=== PATIENT | male | born 1980 | race Caucasian/White ===

== ENCOUNTER 2016-07-22 23:00 | Emergency (ER) | payer BC, SELFPAY ==
--- NOTE | 2016-07-26 00:35 | ER ---
ADMIT: 07/22/2016 RM/LOC: ER [facility] MR#: [id number] [address] [id number] AIDENKARISSAON Shanti [address] [place] [address] Emergency Room Report SEX: M AGE: 36 : 1980 DATE: 07/22/2016 HISTORY OF PRESENT ILLNESS: The patient is a 36-year-old male with no past medical history, came to the ER with chief complaint of chest pain, which is in the middle of the chest, radiates to the back, sharp and burning since 1:00 p.m. The patient denies any previous symptoms in the past and states that today he has very stressful work environment. The patient states the pain comes every few minutes and lasts about 5 minutes and since 1 p.m., he had about 10-12 episodes of pain, which resolved by itself spontaneously. The pain is [id number] in severity. In the ER, patient had very mild residuals of the pain in the mid and left anterior chest. The patient also smokes cigarettes and denies any previous high blood pressure or cardiac problem. PHYSICAL EXAMINATION: VITAL SIGNS: The patient was afebrile. Blood pressure was 150/80 with heart rate of 94 and respiratory rate of 17. The patient was in no obvious distress. HEAD AND NECK: Normal exam. CHEST: Clear bilaterally. HEART: Normal heart sounds without any gallops. There were no murmurs. Normal peripheral pulses. ABDOMEN: Soft, without any pulsatile mass. The rest of the physical exam is negative. EMERGENCY ROOM COURSE: The patient received aspirin 324 mg p.o. in the ER. Patient received GI cocktail, which per patient resolved the pain substantially. X-ray was negative for any acute changes. EKG showed normal sinus rhythm without any ST or T changes or arrhythmias or any indication of ischemias. Cardiac enzymes, troponin I were negative too. ASSESSMENT AND PLAN: The patient was re-examined, he was symptom-free. The patient was discharged to home with prescription for 2 weeks of Protonix 40 mg p.o. daily. Follow up with the primary doctor as needed. The patient acknowledged he understood the plan and agreed with it and was discharged home. Joni Mcclain MD/ wanda JOB #: [id number] CC: Joni Mcclain MD, Attending Physician Tarun Polanco MD, Family Physician
== END 2016-07-23 00:44 | disposition home or self-care (01) ==
LOC: ER 23:00
DX: R07.9 Chest pain, unspecified (principal); F17.210 Nicotine dependence, cigarettes, uncomplicated; Z90.49 Acquired absence of other specified parts of digestive tract; Z88.0 Allergy status to penicillin; Z79.899 Other long term (current) drug therapy